=== PATIENT | male | born 1965 | race Asian ===

== ENCOUNTER 2016-11-16 18:39 | Emergency (ER) | payer MEDICARE, OTHER ==
[~2016-11-16] VITALS: Ht 165.1 cm; Wt 73.2 kg
[~2016-11-16 18:39] MED LIST: ATOR40TA28 PO; GUAI118L40 PO; INSLAN SQ; INSU100I15 SQ; LOSA50TA37 PO; TRAV5DRO2 OP
[2016-11-16 18:52] LABS: GLUCOSE,POINT OF CARE 93 MG/DL (70-110)
[2016-11-16] MEDS ORDERED: LIDOCAINE HCL 1% 10 ML VIAL INJ ONE (19:30)
[2016-11-16] MEDS ORDERED: PERTUSS(ACELL),DIPH,TET VAC/PF 0.5 ML VIAL IM ONE (19:30)
[2016-11-16 19:42] LABS: GLUCOSE,POINT OF CARE 90 MG/DL (70-110)
[2016-11-16] MEDS ORDERED: BACITRACIN 0.9 GM PACKET OINTMENT TP ONE (22:30)
[2016-11-16 22:36] VITALS: BP 136/65
== END 2016-11-16 22:55 | disposition home or self-care (01) ==
LOC: EMS 18:41
DX: S51.812A Laceration without foreign body of left forearm, initial encounter (principal); E11.9 Type 2 diabetes mellitus without complications; I10 Essential (primary) hypertension; E78.00 Pure hypercholesterolemia, unspecified; W26.0XXA Contact with knife, initial encounter; Y93.89 Activity, other specified; Y92.89 Other specified places as the place of occurrence of the external cause; Y99.8 Other external cause status
CPT/HCPCS: 12002; 82962; 90471; 90715; 99283; J3490

== ENCOUNTER 2016-11-19 12:01 | Emergency (ER) | payer MEDICARE, OTHER ==
[~2016-11-19] VITALS: Ht 165.1 cm; Wt 75.0 kg
[~2016-11-19 12:01] MED LIST changes: -GUAI118L40 PO
[2016-11-19 12:21] VITALS: BP 144/85
[2016-11-19 12:23] LABS: GLUCOSE,POINT OF CARE 488 MG/DL (70-110)
== END 2016-11-19 13:04 | disposition home or self-care (01) ==
LOC: EMS 12:01
DX: S51.802D Unspecified open wound of left forearm, subsequent encounter (principal); E11.9 Type 2 diabetes mellitus without complications; I10 Essential (primary) hypertension; E78.00 Pure hypercholesterolemia, unspecified; Z79.4 Long term (current) use of insulin; X58.XXXD Exposure to other specified factors, subsequent encounter
CPT/HCPCS: 82962; 99282

== ENCOUNTER 2020-03-03 18:29 | Emergency (ER) | payer OTHER ==
[~2020-03-03] VITALS: Ht 165.1 cm; Wt 79.5 kg
[~2020-03-03 18:29] MED LIST changes: -TRAV5DRO2 OP
[2020-03-03 21:14] VITALS: BP 145/82
== END 2020-03-03 21:18 | disposition home or self-care (01) ==
LOC: EMS 18:29
DX: S40.022A Contusion of left upper arm, initial encounter (principal); E11.9 Type 2 diabetes mellitus without complications; E78.00 Pure hypercholesterolemia, unspecified; I10 Essential (primary) hypertension; Z79.4 Long term (current) use of insulin; V03.99XA Pedestrian with other conveyance injured in collision with car, pick-up truck or van, unspecified whether traffic or nontraffic accident, initial encounter; Y93.01 Activity, walking, marching and hiking; Y92.89 Other specified places as the place of occurrence of the external cause; Y99.8 Other external cause status
CPT/HCPCS: 73552; 73060-TC; Z7502

== ENCOUNTER 2020-08-18 01:28 | Emergency (ER) | payer OTHER ==
[~2020-08-18] VITALS: Ht 165.1 cm; Wt 81.8 kg
[2020-08-18 01:54] LABS: GLUCOSE,POINT OF CARE 252 MG/DL (70-110)
[2020-08-18] MEDS ORDERED: RABIES VACCINE (PCEC)/PF 2.5 UNITS/ML SYRINGE IM. ONE (04:00)
[2020-08-18] MEDS ORDERED: AMOX TR/POT CLAV 875 MG/125 MG TABLET PO ONE (04:00)
[2020-08-18 04:30] VITALS: BP 135/70
== END 2020-08-18 04:45 | disposition home or self-care (01) ==
LOC: EMS 01:29
DX: S61.052A Open bite of left thumb without damage to nail, initial encounter (principal); E11.9 Type 2 diabetes mellitus without complications; E78.00 Pure hypercholesterolemia, unspecified; I10 Essential (primary) hypertension; W55.01XA Bitten by cat, initial encounter; Y93.89 Activity, other specified; Y92.89 Other specified places as the place of occurrence of the external cause; Y99.8 Other external cause status
CPT/HCPCS: 82962; 90471; 90675; 99283

== ENCOUNTER 2020-08-21 10:03 | Emergency (ER) | payer OTHER ==
[~2020-08-21] VITALS: Ht 172.7 cm; Wt 81.8 kg
[~2020-08-21 10:03] MED LIST changes: -INSLAN SQ; -INSU100I15 SQ
[2020-08-21] MEDS ORDERED: INSULIN PUMP IV (10:15)
[2020-08-21] MEDS ORDERED: RABIES VACCINE (PCEC)/PF 2.5 UNITS/ML SYRINGE IM. ONE (10:45)
[2020-08-21 11:59] VITALS: BP 125/67
== END 2020-08-21 12:20 | disposition left against medical advice (07) ==
LOC: EMS 10:07
DX: S61.052A Open bite of left thumb without damage to nail, initial encounter (principal); E11.9 Type 2 diabetes mellitus without complications; E78.00 Pure hypercholesterolemia, unspecified; I10 Essential (primary) hypertension; Z23 Encounter for immunization; W55.01XA Bitten by cat, initial encounter; Y93.89 Activity, other specified; Y92.89 Other specified places as the place of occurrence of the external cause; Y99.8 Other external cause status
CPT/HCPCS: 82962; 90471; 90675; 99282; 99283

== ENCOUNTER 2025-01-28 10:50 | Emergency (ER) | payer OTHER ==
[~2025-01-28] VITALS: Ht 165.1 cm; Wt 74.1 kg
[~2025-01-28 10:50] MED LIST changes: +INSULIN PUMP IV; +LOSA-382 PO; -LOSA50TA37 PO
[2025-01-28 10:53] VITALS: TEMP 97.9
[2025-01-28] MEDS: KETOROLAC TROMETHAMINE 30 MG/ML VIAL IM ONE (12:31)
[2025-01-28] MEDS: LIDOCAINE 5% TRANSDERMAL PATCH TD ONE (12:32)
[2025-01-28] MEDS ORDERED: METH-812 PO (12:56)
[2025-01-28] MEDS ORDERED: LIDO-57 TP (12:56)
[2025-01-28 13:25] VITALS: BP 151/70; PULSE 90; RESP 18; O2SAT 99
== END 2025-01-28 13:56 | disposition home or self-care (01) ==
LOC: EMS 10:50
DX: S39.92XA Unspecified injury of lower back, initial encounter (principal); E11.9 Type 2 diabetes mellitus without complications; E78.00 Pure hypercholesterolemia, unspecified; I10 Essential (primary) hypertension; Z79.4 Long term (current) use of insulin; Z79.899 Other long term (current) drug therapy; W19.XXXA Unspecified fall, initial encounter; Y93.89 Activity, other specified; Y92.89 Other specified places as the place of occurrence of the external cause; Y99.8 Other external cause status
CPT/HCPCS: 99283; 82962; 96372; J1885